=== PATIENT | male | born 1960 | race African-American/Black ===

== ENCOUNTER 2016-10-07 11:48 | Day surgery (SDC) | payer MEDICAID ==
[~2016-10-07] VITALS: Ht 170.2 cm; Wt 76.1 kg
[2016-10-07 13:24] VITALS: BP 112/68; PULSE 88; TEMP 99
[2016-10-07] MEDS ORDERED: NORCO 325 MG-51 TAB PO ×2 (13:38→16:28)
[2016-10-07] MEDS ORDERED: DESYREL 100MG100 MG PO (13:40)
[2016-10-07] MEDS ORDERED: TYLENOL 500MG500 MG PO (13:40)
[2016-10-07] MEDS ORDERED: COGENTIN 1MG1 MG/TAB PO (13:41)
[2016-10-07] MEDS ORDERED: DULCOLAX S10 MG/SUPP RC (13:43)
[2016-10-07] MEDS ORDERED: ASPIRIN E.C. 8181 MG PO (13:43)
[2016-10-07] MEDS ORDERED: COLACE 100100 MG/CAP PO (13:43)
[2016-10-07] MEDS ORDERED: FLEXERIL 1010 MG/TAB PO (13:43)
[2016-10-07] MEDS ORDERED: CYMBALTA 30MG30 MG PO (13:44)
[2016-10-07] MEDS ORDERED: LASIX 80MG TABL80 MG PO (13:44)
[2016-10-07] MEDS ORDERED: LITHIUM 30300 MG/CAP PO (13:45)
[2016-10-07] MEDS ORDERED: AMITIZA24 MCG PO (13:46)
[2016-10-07] MEDS ORDERED: MULTIPLE VITAMI1 CAP PO (13:46)
[2016-10-07] MEDS ORDERED: ZYPREXA10 MG PO (13:47)
[2016-10-07] MEDS ORDERED: PRILOSEC 20MG20 MG PO (13:48)
[2016-10-07] MEDS ORDERED: TRILEPTAL 300M300 MG PO (13:49)
[2016-10-07] MEDS ORDERED: MIRALAX PA17 GM/Dose PO (13:49)
[2016-10-07] MEDS ORDERED: METAMUCIL3.4 GM/DOS PO (13:50)
[2016-10-07] MEDS ORDERED: LYRICA 150MG C150 MG PO (13:50)
[2016-10-07] MEDS ORDERED: REQUIP0.25 MG PO (13:51)
[2016-10-07] MEDS ORDERED: RT SPIRIVA18 MCG IH (13:51)
[2016-10-07] MEDS ORDERED: DEPO-PROVE150 MG/1 M IM (13:51)
[2016-10-07] MEDS ORDERED: LIORESAL 1010 MG/TAB PO (13:52)
[2016-10-07] MEDS ORDERED: NYSTATIN POWDER15 GM TOP (13:52)
[2016-10-07] MEDS ORDERED: PROAIR HFA0.09 MG/AC IH (13:53)
[2016-10-07] MEDS ORDERED: NORVASC 5MG5 MG/TAB PO (13:53)
[2016-10-07] MEDS ORDERED: BACTRIM DS 8001 TAB PO (13:54)
[2016-10-07] MEDS ORDERED: ATIVAN 1MG T1 MG/TAB PO (13:54)
[2016-10-07 16:00] VITALS: BP 129/91; PULSE 78; TEMP 98.4
[2016-10-07 16:15] VITALS: BP 120/85; PULSE 77
[2016-10-07 16:20] VITALS: TEMP 97.6
[2016-10-07 16:30] VITALS: BP 128/91; PULSE 77
== END 2016-10-07 16:45 | disposition home or self-care (01) ==
LOC: SDCO 11:48
DX: R33.8 Other retention of urine (principal); N31.2 Flaccid neuropathic bladder, not elsewhere classified; Q54.1 Hypospadias, penile; K21.9 Gastro-esophageal reflux disease without esophagitis; F17.210 Nicotine dependence, cigarettes, uncomplicated
CPT/HCPCS: C1769; J0360; J0690; J2704; J3010; J7120